=== PATIENT | female | born 1965 | race Caucasian/White ===

== ENCOUNTER 2019-10-03 11:52 | Emergency (ER) | payer MEDICAID, SELFPAY ==
[~2019-10-03] VITALS: Ht 165.1 cm; Wt 63.5 kg
[2019-10-03 12:25] VITALS: BP_SYST 127
--- NOTE | 2019-10-03 12:32 | NUR ---
ALERT, CALM, RESP UNLABORED, PLACED IN WAITING ROOM. COVID +
[2019-10-03 12:49] LABS: BASOPHILS % (AUTO) 0.4 % (0.0-2.0); EOSINOPHILS % (AUTO) 0.2 % (0.0-4.0); HEMATOCRIT 47.6 % (36-48); HEMOGLOBIN 15.9 g/dL (12.0-16.0); LYMPHOCYTES # (AUTO) 1.6 K/uL (1.0-5.5); LYMPHOCYTES % (AUTO) 35.4 % (20.5-51.5); MEAN CORPUSCULAR HEMOGLOBIN 28 pg (27-31); MEAN CORPUSCULAR HGB CONC 33 % (32-36); MEAN CORPUSCULAR VOLUME 84 fL (79.0-98.0); MONOCYTES # (AUTO) 0.4 K/uL (0.0-1.0); MONOCYTES % (AUTO) 9.4 % (1.7-9.3); NEUTROPHILS # (AUTO) 2.5 K/uL (1.8-7.7); NEUTROPHILS % (AUTO) 54.6 % (40.0-70.0); PLATELET COUNT (AUTO) 202 K/uL (130-430); RED BLOOD CELL COUNT(AUTO) 5.68 MIL/uL (4.2-6.2); RED CELL DISTRIBUTION WIDTH 13.7 % (9.0-15.0); WHITE BLOOD COUNT (AUTO) 4.7 K/uL (4.8-10.8)
[2019-10-03 12:59] LABS: CALCIUM 9.3 mg/dL (8.4-11.0); CREATININE 0.88 mg/dL (0.55-1.30); POTASSIUM 3.8 mmol/L (3.5-5.1)
[2019-10-03 13:03] LABS: ALBUMIN 3.8 g/dL (3.4-4.8); TOTAL BILIRUBIN 0.5 mg/dL (0.0-1.0)
--- NOTE | 2019-10-03 13:44 | NUR ---
CXR IN PROGRESS, LABS OBTAINED, NAD
--- NOTE | 2019-10-03 13:59 | NUR ---
AMBULATES STEADY NO DYSPNEA. COMMUNICATES CLEARLY . AWAITING RESULTS
[2019-10-03 15:20] VITALS: BP_SYST 136
--- NOTE | 2019-10-03 15:20 | NUR ---
Patient given written and verbal discharge instructions and verbalizes understanding. ER MD discussed with patient the results and treatment provided. Patient in stable condition. ID arm band removed. Patient educated on pain management and to follow up with PMD. Pain Scale 2/10 Opportunity for questions provided and answered. Medication side effect fact sheet provided.
== END 2019-10-03 15:20 | disposition home or self-care (01) ==
LOC: SED 11:52
DX: J45.901 Unspecified asthma with (acute) exacerbation (principal); R07.89 Other chest pain
CPT/HCPCS: 36415; 71045; 80053; 85025; 87040-TC; 93005; 99285